=== PATIENT | female | born 1965 | race African-American/Black ===

== ENCOUNTER 2020-03-18 17:07 | Outpatient (CLI) | payer MEDICARE, MEDICAID, SELFPAY ==
--- NOTE | ~2020-03-18 | US_ITS ---
EXAMINATION: US thyroid DATE: 03/18/2020 18:11 INDICATION: Hyperthyroidism. TECHNIQUE: Multiple ultrasound images of the thyroid were obtained. COMPARISON: Thyroid ultrasound 07/29/2017, 02/19/2011 FINDINGS: The right thyroid lobe measures 4.9 x 1.7 x 1.7 cm. The left thyroid lobe measures 5.0 x 1.7 x 2.1 c m. In the right thyroid lobe, there is a 7 mm solid, hypoechoic, aeuaa-yjvp-oqnm nodule with smooth margin without echogenic foci (TI-RADS TR4). In the right thyroid lobe, there is a 7 mm solid, hypoec hoic, jidjr-ukkl-dqet nodule with lobulated margin without echogenic foci (TR4). In the right thyroid lobe, there is a 9 mm solid, hypoechoic, gnpfq-czfr-pbjw nodule with lobulated margin without echoge anita foci (TR4). In the left thyroid lobe, there is a 2.0 cm solid, hypoechoic, tfaae-womq-yhdy nodule with lobulated margin without echogenic foci (TR4), stable from 02/19/11, likely benign. In the left thyroid lobe, there is a 6 mm solid, hypoechoic, rzofk-qhmv-gbtw nodule with lobulated margin without echogenic foci (TR4). There are multiple nodules in the thyroid measuring some 5 mm. In the left thy roid lobe, there is a 6 mm mixed cystic and solid, hypoechoic, zetaja-jdmw-ggga nodule with lobulated margin with peripheral echogenic focus (TR5), stable from 07/29/17, but not visualized on 02/19/11. IMPRESSION: 1. Thyroid nodules. Thyroid ultrasound is recommended in one year. Reviewed, dictated and finalized at location A.
== END 2020-03-18 17:08 | disposition home or self-care (01) ==
PROVIDERS: PCP Family Medicine; Visit Provider Nurse Practitioner Family
DX: E05.90 Thyrotoxicosis, unspecified without thyrotoxic crisis or storm (principal); E04.2 Nontoxic multinodular goiter
CPT/HCPCS: 76536

== ENCOUNTER 2021-01-11 13:17 | Outpatient (CLI) | payer MEDICARE, MEDICAID, SELFPAY ==
--- NOTE | ~2021-01-11 | US_ITS ---
EXAMINATION: US soft tissue chest DATE: 01/11/2021 13:51 INDICATION: Left chest wall lump. TECHNIQUE: Multiple grayscale and Doppler ultrasound images of the chest were obtained. COMPARISON: None FINDINGS: There is abnormal mass in the patient's area of concern in left anterior chest wall. IMPRESSION: 1. No abnormal mass in the patient's area of concern in left anterior chest wall. Reviewed, dictated and finalized at location A. IMPRESSION: 1. No abnormal mass in the patient's area of concern in left anterior chest devon angel
--- NOTE | ~2021-01-11 | XR_ITS ---
EXAMINATION: XR chest 2V DATE: 01/11/2021 13:48 INDICATION: Chest wall swelling. TECHNIQUE: Frontal and lateral views of the chest were obtained. COMPARISON: Chest 2 views 10/19/2017 FINDINGS: The chest demonstrates clear lungs without pneumonia, pleural effusion, or pneumothorax. Th e heart size is normal. IMPRESSION: 1. No acute cardiopulmonary disease. Reviewed, dictated and finalized at location A.
--- NOTE | ~2021-01-11 | MM_ITS ---
EXAMINATION: MM screening joanne BI w brooke HISTORY: Screening TECHNIQUE: Craniocaudal and mediolateral oblique 3-D tomosynthesis images were obtained and synthetic 2-D images were generated. CAD analysis was submitted and interpreted. COMPARISON: Comparison to multiple prior studies sequentially, with oldest reviewed study dated 04/2018. BREAST PARENCHYMAL COMPOSITION: The breasts are heterogeneously dense, which may obscure small masses . FINDINGS: There is no evidence of suspicious mass, calcification, or architectural distortion to sugg est malignancy in either breast. There has been no suspicious interval change. IMPRESSION: 1. No mammographic evidence of malignancy. 2. Recommend routine screening mammography in one year. BI-RADS Category 1: Negative Reviewed, dictated and finalized at location A.
== END 2021-01-11 13:18 | disposition home or self-care (01) ==
PROVIDERS: PCP Family Medicine; Visit Provider Nurse Practitioner Family
DX: Z12.31 Encounter for screening mammogram for malignant neoplasm of breast (principal); R79.89 Other specified abnormal findings of blood chemistry
CPT/HCPCS: 71046; 76604; 77063; 77067

== ENCOUNTER 2024-08-16 10:54 | Outpatient (CLI) | payer MEDICARE, SELFPAY ==
--- NOTE | ~2024-08-16 | MR_ITS ---
MRI of the lumbar spine Clinical History: Back pain Technique: Axial T2-weighted images, and sagittal T1-weighted, T2-weighted, and and T2 fat-sat images were acquired. Findings: There is no fracture or subluxation of the lumbar spine. Vertebral bodies maintain normal h eight and alignment. No suspicious bone marrow signal abnormality seen. At L1-L2 there is no disc bulge or herniation. There is minimal facet arthropathy. No central canal s tenosis or neural foraminal narrowing. At L2-L3, there is no disc bulge or herniation. There is minimal facet arthropathy. No central canal stenosis or neural foraminal narrowing. At L3-L4, there is no disc bulge or herniation. There is mild facet arthropathy. No central canal ramon nosis or neural foraminal narrowing. At L4-L5, there is minimal disc bulge. There is severe facet arthropathy, with a large left-sided syn ovial cyst measuring 1.8 x 1.3 cm in transverse diameter, and 3.1 cm in craniocaudal extent. This res ults in severe compression of the thecal sac at the L4-L5 level. There is moderate left neural forami nal narrowing, and mild right neural foraminal narrowing. At L5-S1, there is minimal disc bulge and severe facet arthropathy. No tra canal stenosis. There is moderate left neural foraminal narrowing. Right neural foramen preserved. Paravertebral soft tissues are otherwise unremarkable. Impression: 1.8 x 1.3 x 3.1 cm left sided synovial cyst at the L4-L5 level, resulting in severe thecal sac compre ssion and probable nerve root compression at this level. Additional degenerative changes predominantly at the L4-L5 and L5-S1 level, as detailed above. Reviewed, dictated and finalized at [facility]. Impression: 1.8 x 1.3 x 3.1 cm left sided synovial cyst at the L4-L5 level, resulting in se anthony thecal sac compression and probable nerve root compression at this level. Additional degenerative changes predominantly at the L4-L5 and L5-S1 level, as detailed above.
== END 2024-08-16 10:55 | disposition home or self-care (01) ==
PROVIDERS: PCP Family Medicine; Visit Provider Nurse Practitioner Family
DX: M51.369 Other intervertebral disc degeneration, lumbar region without mention of lumbar back pain or lower extremity pain (principal)
CPT/HCPCS: 72148